=== PATIENT | female | born 1975 | race Caucasian/White ===

== ENCOUNTER → 2018-06-30 14:52 | Outpatient (CLI) | payer BC, SELFPAY ==
--- NOTE | 2018-06-30 15:00 | XR_ITS ---
EXAM: XR lumbar spine min 4V HISTORY: ITS.REASON: LOWER BACK PAIN ORDERING PHYSICIAN: Alisa Ramirez PATIENT AGE: 42 years COMPARISON: None FINDINGS: There is moderate lumbar scoliosis convex left measuring 21 degrees. There is a rotary component to the scoliosis. No acute fracture or dislocation is evident. No lytic or blastic change. IMPRESSION: Levoscoliosis otherwise negative lumbar spine
[2018-06-30 15:19] LABS: MANUAL DIFFERENTIAL MANUAL DIFFERENTIAL (MANUAL DIFF)
[2018-06-30 15:35] LABS: Basophils # 0.1 K/mm3 (0-0.2); Basophils % 0.6 % (0.1-2.0); Eosinophils # 0.2 K/mm3 (0.0-0.4); Hematocrit 40.3 % (37.0-47.0); Hemoglobin 12.9 g/dL (12.2-16.2); Lymphocytes # 3.4 K/mm3 (0.7-4.5); Lymphocytes % 35.8 K/mm3 (10-50); Mean Corpuscular HGB Conc 32.1 g/dL (31.8-35.4); Mean Corpuscular Hemoglobin 31.3 pg (27.0-31.2); Mean Corpuscular Volume 97.4 fl (81-99); Monocytes # 0.5 K/mm3 (0.1-1.0); Monocytes % 4.7 % (1.7-9.3); Neutrophils # 5.4 K/mm3 (1.8-7.8); Neutrophils % 56.9 % (37.0-80.0); Platelet Count 340 K/mm3 (142-424); Red Blood Count 4.14 M/mm3 (4.20-5.40); Red Cell Distribution Width 12.9 % (11.5-17.5); White Blood Count 9.4 K/mm3 (4.8-10.8)
[2018-06-30 16:13] LABS: Lymphocytes % 29 % (10-50); Monocytes % 3 % (2-9); Neutrophils % 67 % (42-76); Platelet Estimate Normal; RBC Morphology Normal; Total Cells Counted 100
[2018-06-30 16:24] LABS: Alanine Aminotransferase 33 U/L (12-78); Albumin Level 3.8 gm/dL (3.4-5.0); Albumin/Globulin Ratio 1.3 (1.1-1.8); Alkaline Phosphatase 109 U/L (46-116); Anion Gap 11.4 mEq/L (5-15); Aspartate Amino Transferase 15 U/L (15-37); Bilirubin,Total 0.2 mg/dL (0.2-1.0); Blood Urea Nitrogen 20 mg/dL (7-18); Calcium 9.2 mg/dL (8.5-10.1); Carbon Dioxide 29 mmol/L (21.0-32.0); Chloride 107 mmol/L (98-107); Creatinine,Serum 0.81 mg/dL (0.55-1.02); Estimated Glomerular Filt Rate 78 ml/min (>60); GFR (African American) 95 ML/MIN (>60); Globulin 2.9 gm/dl (1.3-3.2); Glucose 100 mg/dL (74-106); Potassium 4.4 mmoL/L (3.5-5.1); Sodium 143 mmol/L (136-145); Thyroid Stimulating Hormone 0.63 uIU/ml (0.358-3.740); Total Protein,Serum 6.7 gm/dL (6.4-8.2)
[2018-07-02 13:54] LABS: Vitamin B12 251 pg/mL (232-1245); Vitamin D 25 Hydroxy 38.9 ng/mL (30.0-100.0)
== END ==
PROVIDERS: PCP Nurse Practitioner Family; Visit Provider Nurse Practitioner Family
DX: M54.5 Low back pain (principal); R63.5 Abnormal weight gain; R94.31 Abnormal electrocardiogram [ECG] [EKG]
CPT/HCPCS: 36415; 72110; 80053; 82607; 82652; 84439; 84443; 85007; 85014; 85018; 85048; 85049

== ENCOUNTER → 2018-08-20 14:32 | Outpatient (CLI) | payer BC, SELFPAY ==
--- NOTE | 2018-08-20 14:42 | US_ITS ---
US thyroid HISTORY: ITS.REASON: THYROMEGALY ORDERING PHYSICIAN: Grayson Mckeon MD PATIENT AGE: 42 years Comparison: FINDINGS: The isthmus is 3 mm in thickness The right lobe is 4.1 x 1.6 x 1.6 cm. 2 mm hypoechoic nodule upper pole posteriorly 2 mm hypoechoic nodule upper pole anteriorly The left lobe is 4.6 x 2.1 x 2.8 cm with some heterogeneous echogenicity. There is a 3.5 x 2.8 x 1.7 cm solid-appearing nodule occupying most of the left lobe of the thyroid gland. The margins are somewhat difficult to discern. IMPRESSION: Dominant left-sided thyroid nodule at 3.5 x 2.8 x 1.7 cm. Consider fine-needle aspiration with sonographic guidance of the left sided nodule
== END ==
PROVIDERS: PCP Family Medicine; Visit Provider Family Medicine
DX: E01.0 Iodine-deficiency related diffuse (endemic) goiter (principal)
CPT/HCPCS: 76536

== ENCOUNTER → 2018-09-04 09:29 | Outpatient (CLI) | payer BC, SELFPAY ==
--- NOTE | 2018-09-04 09:36 | US_ITS ---
FNA w guidance, US thyroid HISTORY: Dominant thyroid nodule/mass ITS.REASON: THYROID NODULE ORDERING PHYSICIAN: Grayson Mckeon MD PATIENT AGE: 42 years COMPARISON: 08/20/2018 Prebiopsy ultrasound: Ultrasound performed of the left thyroid gland for prebiopsy planning. The dominant nodule was localized on the left and appropriate site marked for biopsy. TECHNIQUE: Following obtaining informed consent, using aseptic technique and local anesthesia with buffered lidocaine, fine-needle aspiration was performed of the nodule of interest using sonographic guidance. 3 passes were made into the nodule with a 25-gauge needle and 1 pass made with a 21-gauge needle. Specimen was given to cytology. The patient tolerated the procedure well without evidence of immediate complications and left the ultrasound suite in stable condition. CYTOLOGY:Negative for malignancy. Consistent with benign goitrous follicular nodule IMPRESSION: Successful sonographic guided fine needle aspiration of left thyroid nodule showing benign findings
== END ==
PROVIDERS: PCP Family Medicine; Visit Provider Family Medicine
DX: E04.1 Nontoxic single thyroid nodule (principal)
CPT/HCPCS: 10022; 76536

== ENCOUNTER → 2021-09-29 09:17 | Outpatient (CLI) | payer BC, SELFPAY | PROVIDERS: PCP Family Medicine; Visit Provider Nurse Practitioner | DX: Z20.822 Contact with and (suspected) exposure to COVID-19 (principal) | CPT/HCPCS: C9803; U0003; U0005 ==